=== PATIENT | female | born 1965 | race Caucasian/White ===

== ENCOUNTER 2016-08-09 11:43 | Emergency (ER) | payer OTHER ==
[2016-08-09 11:50] VITALS: RESP 26
--- NOTE | 2016-08-09 12:31 | EDPHY ---
H & P Time Seen by Provider: 08/09/16 12:22 HPI/ROS: CHIEF COMPLAINT: Right 2nd digit laceration HISTORY OF PRESENT ILLNESS: 51-year-old female with out-of-date tetanus dropped a Cuisinart blade onto her right 2nd digit sustaining laceration. decreased sensation distally. Occurred shortly prior to arrival. PHYSICAL EXAM (Prior to examination, patient consented to physical exam, hands were washed and my usual and customary physical exam procedures followed) 1) GENERAL: Well-developed, well-nourished, alert and oriented. Appears to be in no acute distress. 2) HEAD: Normocephalic 3) HEENT: sclera anicteric 4) LUNGS: Breathing comfortably. 5) SKIN: Palmar aspect of right 2nd digit at the D IP joint 2 cm laceration 6) MUSCULOSKELETAL: flexion extension at the MCP PIP D IP independently tested and is intact with no deficits 7) NEUROLOGIC: Decreased sensation distally prior to administration of digital nerve block Smoking Status: Never smoked Constitutional: Initial Vital Signs Temperature (C) 36.4 C 08/09/16 11:48 Heart Rate 73 08/09/16 11:48 Respiratory Rate 26 H 08/09/16 11:48 Blood Pressure 115/79 08/09/16 11:48 O2 Sat (%) 100 08/09/16 11:48 O2 Delivery Mode Room Air Allergies/Adverse Reactions: Penicillins Allergy (Verified 08/09/16 11:47) Home Medications: Medication Instructions Recorded NK [No Known Home Meds] 08/09/16 MDM/Departure - MDM Procedures: Procedure: Laceration repair. I explained the indications, risks and benefits for both laceration repair and anesthetic administration. Verbal consent was obtained from the patient . The laceration on the right 2nd digit was anesthetized using 0.5% bupivicaine without epinephrine digital nerve block. After anesthetic administered the patient was observed for a period of time and had no apparent adverse effects. The wound was cleaned, prepped, draped in normal sterile fashion and explored to its base. No foreign body seen, no foreign bodies palpated. There were no deep structures involved. No tendon injury was identified. The wound was repaired with 5 simple interrupted 5 O Prolene suture. The wound repair was simple. The procedure was performed by myself. Patient has been informed that scarring will occur, although efforts have been made to minimize this. ED Course/Re-evaluation: No definitive flexor injury identified however an occult injury cannot be fully ruled out. Recommend she follow up with Hand surgery. Sutures to be removed in 10 days. - Depart Disposition: Home, Routine, Self-Care Clinical Impression: Finger laceration Qualifiers: Encounter type: initial encounter Qualified Code(s): S61.219A - Laceration without foreign body of unspecified finger without damage to nail, initial encounter Condition: Good Instructions: Laceration (ED) Additional Instructions: Return to the ER if you develop redness, swelling, discharge, warmth to the wound, red streaks going up your arm , or any other symptoms that concern you. Referrals: Deven Bustamante MD [Medical Doctor] - 5-7 days, call for appt. (Dr. Deven Bustamante is a hand surgeon) Return, to the ER in 10 days for suture removal [Other] - As per Instructions
[2016-08-09] MEDS ORDERED: TDAP ADULT 0.5 ML INJ (BOOSTRIX) IM ONE (13:01)
[2016-08-09 13:36] VITALS: BP 116/76; PULSE 62; TEMP 98.1; O2SAT 97
== END 2016-08-09 13:36 | disposition home or self-care (01) ==
PROC: 0HQFXZZ Repair Right Hand Skin, External Approach (ICD-10-PCS; principal; 2016-08-09)
DX: S61.210A Laceration without foreign body of right index finger without damage to nail, initial encounter (principal); Z23 Encounter for immunization; W26.8XXA Contact with other sharp object(s), not elsewhere classified, initial encounter; Y99.8 Other external cause status